=== PATIENT | female | born 1965 | race Two or more races ===

== ENCOUNTER 2020-09-01 14:18 | Emergency (ER) | payer MEDICAID ==
[~2020-09-01] VITALS: Ht 165.1 cm; Wt 172.0 kg
[2020-09-01 14:29] VITALS: BP 163/94
[2020-09-01] MEDS ORDERED: KETOROLAC 30MG/ML VIAL IM ONE (17:15)
== END 2020-09-01 16:04 | disposition home or self-care (01) ==
LOC: ER 14:18
DX: S63.501A Unspecified sprain of right wrist, initial encounter (principal); S00.93XA Contusion of unspecified part of head, initial encounter; J44.1 Chronic obstructive pulmonary disease with (acute) exacerbation; E11.9 Type 2 diabetes mellitus without complications; Z90.49 Acquired absence of other specified parts of digestive tract; Z98.890 Other specified postprocedural states; W07.XXXA Fall from chair, initial encounter; Y93.89 Activity, other specified; Y92.89 Other specified places as the place of occurrence of the external cause; Y99.8 Other external cause status
CPT/HCPCS: 73110; 73502; 73562; 96372; 99284; J1885